=== PATIENT | male | born 1985 | race Caucasian/White ===

== ENCOUNTER 2022-03-07 19:40 | Emergency (ER) | payer MEDICAID ==
[~2022-03-07] VITALS: Ht 175.3 cm; Wt 59.0 kg
[2022-03-07 22:44] LABS: BASOPHILS % 0.1 % (0.0-2.0); HEMOGLOBIN. 14.6 g/dL (14.0-18.0); MEAN CORPUSCULAR HEMOGLOBIN 30.1 pg (28.0-32.0); MEAN CORPUSCULAR VOLUME 88.6 fL (80.0-94.0); MEAN PLATELET VOLUME 9.2 fl (7.4-10.4); MONOCYTES % 8.7 % (2.0-8.0); NEUTROPHILS % 80.2 % (40.0-76.0); PLATELET 264 x1000/uL (130-400); RED BLOOD CELL COUNT 4.85 mill/uL (4.7-6.1); RED CELL DISTRIBUTION WIDTH 13.4 % (11.6-14.6)
[2022-03-07] MEDS ORDERED: SODIUM CHLORIDE 0.9% 1,000 ML IV ONE (22:45)
[2022-03-07 22:50] LABS: CHLORIDE 104 mEq/L (98-107)
[2022-03-07 23:02] LABS: ETHANOL BLOOD < 10 mg/dL
[2022-03-08] MEDS ORDERED: NALOXONE HCL 0.4 MG/ML 1ML VIAL IV ONE (00:15)
[2022-03-08 01:33] VITALS: BP 136/76
[2022-03-08] MEDS ORDERED: NALO4SPR BOTHNSTRLS (01:56)
== END 2022-03-08 02:35 | disposition home or self-care (01) ==
LOC: ER 19:40
DX: R41.82 Altered mental status, unspecified (principal); T65.91XA Toxic effect of unspecified substance, accidental (unintentional), initial encounter; Y92.89 Other specified places as the place of occurrence of the external cause
CPT/HCPCS: 36415; 70450; 71045; 80053; 80320; 82962; 83690; 84484; 85025; 85610; 93005; 96374; 99285; J2310; J7030; G0480